=== PATIENT | female | born 1985 | race Caucasian/White ===

== ENCOUNTER → 2016-08-29 | Outpatient (CLI) | payer OTHER ==
--- NOTE | 2016-08-29 14:36 | US ---
Ultrasound Obstetric First Trimester History: History of positive . LMP June 01, 2016. Positive hCG. Technique: Transabdominal and transvaginal imaging was obtained of the pelvis. Findings: Uterus measures 9.2 x 4.6 cm. No evidence for myometrial mass. Endometrial stripe measures 13 mm. No evidence for an intrauterine regnancy. No significant free fluid. Right ovary measures 3.1 x 1.6 x 1.9 cm. The left ovary measures 3.5 x 2.2 x 2.2 cm. Both ovaries demonstrate blood flow. Ther e is a paraovarian cyst with a simple appearance at the right adnexal region measuring 1.3 cm and ano ther measuring 0.7 cm. There is a thick walled cystic lesion or gestational sac seen in the left para ovarian location measuring 3.3 x 2.1 x 2.2 cm. Impression: No evidence for an intrauterine . Thick walled cystic lesion or gestational sac in the left paraovarian location suspicious for an ectopic , particularly, with the lack of an intrauterine and positive hCG. This was discussed with Dr. Jenn Fields's miner assistant on August 29, 2016 at 1425 hours.
== END ==
LOC: FIMAGING 13:02
PROVIDERS: ATTEND Obstetrics & Gynecology
DX: Z32.01 Encounter for pregnancy test, result positive (principal)

== ENCOUNTER 2016-09-14 07:37 | Observation (INO) | payer OTHER ==
[2016-09-14 08:10] LABS: COLOR YELLOW; LEUKOCYTE ESTERASE,URINE NEGATIVE (NEGATIVE); NITRITE,URINE NEGATIVE (NEGATIVE)
[2016-09-14 08:24] LABS: % IMMATURE GRANULYOCYTES 0.3 % (0.0-1.1); ABSOLUTE IMMATURE GRANULOCYTES 0.02 10^3/uL (0.00-0.10); ADD DIFF? NO; ADD MORPH? NO; ADD SCAN? NO; ATYPICAL LYMPHOCYTE FLAG 10 (0-99); FRAGMENT RBC FLAG 0 (0-99); HEMATOCRIT 34.8 % (38.0-47.0); HEMOGLOBIN 11.8 g/dL (12.6-16.3); LEFT SHIFT FLG 0 (0-99); LIPEMIA HEMOLYSIS FLAG 90 (0-99); MEAN CELL HEMOGLOBIN 29.4 pg (27.9-34.1); MEAN CELL HEMOGLOBIN CONCENTR. 33.9 g/dL (32.4-36.7); MEAN CELL VOLUME 86.6 fL (81.5-99.8); MEAN PLATELET VOLUME 8.5 fL (8.7-11.7); PLATELET CLUMPS FLAG 10 (0-99); PLATELET COUNT 226 10^3/uL (150-400); RED BLOOD CELL COUNT 4.02 10^6/uL (4.18-5.33)
--- NOTE | 2016-09-14 08:48 | EDPHY ---
H & P Stated Complaint: Suprapubic abd pain since last ron;recent tx ectopic;pain radiates R should Time Seen by Provider: 09/14/16 07:58 HPI/ROS: CHIEF COMPLAINT: Abdominal cramping and dizziness in the setting of ectopic HISTORY OF PRESENT ILLNESS: This is a 31-year-old female withHistory of DVT /PE and a known left-sided ectopic . She is being followed by Dr. Fields. She received methotrexate two weeks ago. She has been having regular beta HCG testing with a decline in these values. Initially she had bleeding and cramping, both of which resolved a couple of days ago. However, last night she had a return of her lower abdominal cramping and felt dizzy. She spoke with the on-call nurse and was advised to rest, use a heating pad, and take [id number]-rplzcyt pain medication. She took Tylenol. This morning when she awoke she had continued abdominal pain and now notes left shoulder pain. She has intermittent dizziness. She is not having vaginal bleeding. She denies fever, back or flank pain, vomiting, or diarrhea. She does have some pain with urination, denies frequency or urgency. She is not having chest pain or shortness of breath. No calf pain or swelling. REVIEW OF SYSTEMS: A ten point review of systems was performed and is negative with the exception of the items mentioned in the HPI. Source: Patient Exam Limitations: No limitations - Personal History LMP (Females 10-55): Over 28 Days Ago Current Tetanus Diphtheria and Acellular Pertussis (TDAP): Yes - Medical/Surgical History Other PMH: 1. DVT/ PE at age 22. 2. Ectopic - Social History Smoking Status: Former smoker Drug Use: None Additional Social History: She is . She owns a [employer]. - Physical Exam Exam: General Appearance: Alert. Vital signs reviewed and normal. Eyes: Pupils equal and round, no conjunctival injection, no discharge. Anicteric. ENT, Mouth: Mucous membranes are moist, no oropharyngeal erythema or edema. Neck: No lymphadenopathy. Respiratory: Lungs are clear to auscultation; no wheezes, rales, or rhonchi. Cardiovascular: Regular rate and rhythm; no murmur, rub, or gallop. Gastrointestinal: Abdomen is soft diffusely tender, somewhat worse in the left lower quadrant, no guarding,no masses or organomegaly, bowel sounds normal. Skin: Warm and dry, no rashes on exposed skin, normal color. Back: No CVAT. Extremities: No lower extremity edema, no calf tenderness or swelling. Neurological: Alert and oriented. Moving all four extremities easily and equally. Psychiatric: Normal affect. Constitutional: Initial Vital Signs Temperature (C) 36.9 C 09/14/16 07:38 Heart Rate 90 09/14/16 07:38 Respiratory Rate 18 09/14/16 07:38 Blood Pressure 116/76 09/14/16 07:38 O2 Sat (%) 95 09/14/16 07:38 O2 Delivery Mode Room Air Allergies/Adverse Reactions: hydrocodone Allergy (Verified 09/14/16 12:19) Vomiting Home Medications: Medication Instructions Recorded Albuterol [Proventil Inhaler HFA 2 puffs IH Q4H PRN 09/14/16 (*)] Cetirizine [ZyrTEC 10 mg (*)] 10 mg PO DAILY 09/14/16 Fluticasone/Salmeter 250/50Mcg 1 puffs IH BID 09/14/16 [Advair 250/50 (*)] METHYLPHENIDATE HCL [Concerta 54 54 mg PO DAILY 09/14/16 mg] Medical Decision Making - Diagnostics Imaging: Pelvic ultrasound was obtained and shows a soft tissue mass in the region of the left broad ligament/adnexa with free fluid in the pelvis and Morison's pouch. This was reported to me by Dr. Martinez. ED Course/Re-evaluation: 31-year-old with a known left ectopic who has developed new cramping and intermittent dizziness. CBC, chemistries, and beta HCG will be checked. She has complained of some dysuria and a urinalysis will also be obtained. Pelvic ultrasound to assess for bleeding has been ordered. She is currently hemodynamically stable. I have spoken with the room server intervention manager for Dr. Fields at [facility]. Patient underwent serial abdominal exams while in the department. She continued with lower abdominal tenderness, worse on the left than on the right. She did not exhibit peritoneal signs. I have reviewed her laboratory values including CBC, chemistries, and beta HCG. Her beta HCG continues to decline. HEmoglobin and hematocrit are 11.8 and 34.8 this morning. Pelvic ultrasound reveals free fluid in the pelvis and Morison's pouch, likely hemoperitoneum given her history and physical exam. I have spoken with the certified nurse room server on duty for the [facility] and she is evaluated the patient in the emergency department. Dr. Parnell has also evaluated the patient. This patient would like to avoid surgery if at all possible. She is being admitted to the hospital for observation and serial hematocrits. Today's presentation is consistent with bleeding secondary to left ectopic . I do not suspect VTE today. However, she is at risk for DVT or PE given her history. Differential Diagnosis: I considered a differential diagnosis that includes but is not limited to ectopic , ruptured ectopic with hemoperitoneum, ovarian cyst , ruptured ovarian cyst, ovarian torsion, and pelvic infection. - Data Points Laboratory Results: Laboratory Results 09/14/16 08:00 09/14/16 08:00 Medications Given: Discontinued Medications Fentanyl (Sublimaze) 75 mcg IVP EDNOW ONE Stop: 09/14/16 10:20 Last Admin: 09/14/16 10:32 Dose: 75 mcg Hydromorphone HCl (Dilaudid) 0.5 mg IVP EDNOW ONE Stop: 09/14/16 11:57 Last Admin: 09/14/16 12:02 Dose: 0.5 mg Departure - Departure Disposition: [facility] Inpatient Acute Clinical Impression: Ectopic , tubal Qualifiers: Intrauterine status: without intrauterine Qualified Code(s) : O00.10 - Tubal without intrauterine Condition: Good
[2016-09-14 08:54] LABS: ANION GAP 8 mEq/L (8-16); CALCIUM 8.8 mg/dL (8.5-10.4); CARBON DIOXIDE 24 mEq/l (22-31); CHLORIDE 107 mEq/L (97-110); CREATININE 0.6 mg/dL (0.6-1.0); GLOMERULAR FILTRATION RATE > 60; GLUCOSE 97 mg/dL (70-100); POTASSIUM 3.8 mEq/L (3.5-5.2); SODIUM 139 mEq/L (134-144)
[2016-09-14] MEDS ORDERED: fentaNYL 100 MCG/2 ML INJ IVP ONE (10:19)
--- NOTE | 2016-09-14 10:38 | PDCONSULT ---
Oral And Maxillofacial Surgery Resident Note: 31 y.o. female presents with concerns of worsening LLQ and upper shoulder pain. Patient's history significant for ectopic that was diagnosed and treated with two doses of methotrexate on 08/29/16. Patient had been pain free until last night. Labs indicate continued decrease in QHCG and stable CBC and VS. Pelvic US reveals moderate amount of free fluid in pelvis and persistant left ectopic . Consulted with Dr. Parnell and will be in to evaluate patient further.
[2016-09-14] MEDS ORDERED: HYDROmorphONE/DILAUDID 1 MG/ML SYR IVP ONE (11:56)
[2016-09-14] MEDS ORDERED: ONDANSETRON 4 MG/2 ML VIAL IVP PRN (11:59)
[2016-09-14] MEDS ORDERED: ONDANSETRON DISINTEGRATING 4 MG TAB PO PRN (11:59)
[2016-09-14] MEDS ORDERED: D5W 1/2 NS 1,000 ML IV SCH (12:00)
[2016-09-14] MEDS ORDERED: NALOXONE HCL 0.4 MG/ML INJ IVP PRN (12:03)
[2016-09-14] MEDS ORDERED: HYDROmorphONE/DILAUDID 6 MG/30 ML PCA IV PRN (12:03)
--- NOTE | 2016-09-14 12:44 | GHP ---
[f rep st] PREOP HISTORY AND PHYSICAL DATE OF ADMISSION: 09/14/2016 CHIEF COMPLAINT: Abdominal pain and ectopic . HISTORY OF PRESENT ILLNESS: The patient is a 31-year-old female who has a known ectopic . She was treated with methotrexate 2 weeks ago by my partner, Dr. Fields. Her ectopic at that point was measuring 3.5 cm in size. Her HCG was 6805. Her initial hematocrit was 40. She then received methotrexate and her HCGs were falling appropriately; on day #3 it was 4127. On day 7, it was 2829. Of note, on day 7 after the methotrexate her hematocrit at that point was 37%, and on day 14, her HCG had dropped to 788. The patient then began to develop abdominal pain. Yesterday, she had experienced significant sharp right-sided abdominal pain. She had no vaginal bleeding. No nausea or vomiting. She did state that she was dizzy and felt like she was going to pass out one time while going to the bathroom. She took Tylenol for pain management and rested. She did not feel any better this morning; however, her pain had not felt any worse and presented to the ER for evaluation. Upon admission to the ER at 7:30 this morning, she had normal vital signs of 116 /76 blood pressure, heart rate was 90, O2 sats were 95%, temperature was 36.9. Her initial hematocrit was 34% on admission. This morning she had a normal white count of 5.8. Her platelets were 226. She had normal creatinine function and chemistries, and her HCG today has dropped down to 356. The patient underwent a pelvic ultrasound which showed moderate free fluid in the posterior cul-de-sac and right upper quadrant, Morison pouch. I have reviewed these images myself. The patient has a presumed ectopic on the left adnexa that was measuring 5.8 x 2.7 x 3.3; it was previously 3.4 x 2.3 x 2.1. She has a normal right ovary that is 3.1 x 2.8 x 1.51 cm in size with a 1.2 cm ovarian cyst. Otherwise, her uterus was normal in appearance. The patient's repeat vital signs at 11 a.m. were blood pressure 99/53, heart rate 73, respiratory rate 16, O2 saturation 94%. The patient had received pain medication. In the ER, she received 75 mcg of fentanyl. The patient chose methotrexate for treatment as she wanted to avoid possible removal of her fallopian tubes. She wanted tubal preservation. 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 PAST GYNECOLOGIC HISTORY: Noncontributory. She has had a history of IUD use. PAST OBSTETRICAL HISTORY: This is her first . PAST SURGICAL HISTORY: None. REVIEW OF SYSTEMS: Positive for abdominal pain and some nausea. Negative for vomiting, fevers, chills, dyspnea, vaginal bleeding. PHYSICAL EXAMINATION: VITAL SIGNS: On my exam, her blood pressure is 99/53, heart rate 73, respiratory rate 16, O2 saturation is 94%. GENERAL: She is uncomfortable in appearance. ABDOMEN: Soft. There is no rebound. There is no guarding. There is no distention. No significant tenderness with palpation. LABORATORY DATA: As stated, significant for HCG of 356, hematocrit of 34%, white blood cell count of 5.81, platelets 226, and a negative urinalysis. ASSESSMENT/PLAN: This is a 31-year-old, G1, P0, female with known left ectopic chose to have methotrexate treatment 16 days ago for tubal preservation who now has evidence of moderate free fluid, likely hemoperitoneum , in the abdomen with an essentially stable hematocrit from 1 week ago and significant history of DVTs and PEs. I discussed with the patient the findings of her exam, her laboratory evaluation, and her ultrasound. I explained to her that she does have hemoperitoneum in her pelvis and abdomen which has likely occurred as the ectopic probably extruded from the fallopian last evening which caused her increased pain and bleeding in the abdomen. I did discuss with the patient at this point she is hemodynamically stable and I know that she had chosen methotrexate initially to preserve her fallopian tube if possible. I discussed with the patient the option of proceeding to surgery right now and remove the fallopian tube and clean out any of the hemoperitoneum with the obvious attendant risks of surgery particularly in the setting of the patient having a history of DVTs and PEs. It does significantly increase the risk of her undergoing surgery. I also offered to the patient inpatient observation admission for serial hematocrits and pain management. I discussed that if her hematocrit was decreasing significantly then I would recommend surgical treatment. However, as her hematocrit currently is only 34% and it was 37% last week, I do not think she has had a significant amount of bleeding, particularly as her pain started yesterday in the afternoon and her hematocrit is from this morning. I discussed with the patient also if her pain was worsening significantly we would also move toward surgery. The patient would like to proceed with inpatient observation and serial hematocrits, and understands that if her condition worsens that we would be proceeding to surgery. /[id number]/MODL MTDD
[2016-09-14 14:53] LABS: % IMMATURE GRANULYOCYTES 0.2 % (0.0-1.1); ABSOLUTE IMMATURE GRANULOCYTES 0.01 10^3/uL (0.00-0.10); ADD DIFF? NO; ADD MORPH? NO; ADD SCAN? NO; ATYPICAL LYMPHOCYTE FLAG 10 (0-99); FRAGMENT RBC FLAG 0 (0-99); HEMATOCRIT 32.4 % (38.0-47.0); HEMOGLOBIN 11.2 g/dL (12.6-16.3); LEFT SHIFT FLG 0 (0-99); LIPEMIA HEMOLYSIS FLAG 90 (0-99); MEAN CELL HEMOGLOBIN 29.8 pg (27.9-34.1); MEAN CELL HEMOGLOBIN CONCENTR. 34.6 g/dL (32.4-36.7); MEAN CELL VOLUME 86.2 fL (81.5-99.8); MEAN PLATELET VOLUME 8.3 fL (8.7-11.7); PLATELET CLUMPS FLAG 0 (0-99); PLATELET COUNT 200 10^3/uL (150-400); RED BLOOD CELL COUNT 3.76 10^6/uL (4.18-5.33); RED CELL DISTRIBUTION WIDTH 13.1 % (11.5-15.2)
[2016-09-14 20:06] LABS: % IMMATURE GRANULYOCYTES 0.2 % (0.0-1.1); ABSOLUTE IMMATURE GRANULOCYTES 0.01 10^3/uL (0.00-0.10); ADD DIFF? NO; ADD MORPH? NO; ADD SCAN? NO; ATYPICAL LYMPHOCYTE FLAG 10 (0-99); FRAGMENT RBC FLAG 0 (0-99); HEMATOCRIT 31.3 % (38.0-47.0); HEMOGLOBIN 10.7 g/dL (12.6-16.3); LEFT SHIFT FLG 0 (0-99); LIPEMIA HEMOLYSIS FLAG 90 (0-99); MEAN CELL HEMOGLOBIN 29.8 pg (27.9-34.1); MEAN CELL HEMOGLOBIN CONCENTR. 34.2 g/dL (32.4-36.7); MEAN CELL VOLUME 87.2 fL (81.5-99.8); MEAN PLATELET VOLUME 8.4 fL (8.7-11.7); PLATELET CLUMPS FLAG 0 (0-99); PLATELET COUNT 192 10^3/uL (150-400); RED BLOOD CELL COUNT 3.59 10^6/uL (4.18-5.33); RED CELL DISTRIBUTION WIDTH 12.9 % (11.5-15.2)
[2016-09-14] MEDS ORDERED: ACETAMINOPHEN 325 MG TAB PO PRN (20:24)
[2016-09-15 06:19] LABS: % IMMATURE GRANULYOCYTES 0.3 % (0.0-1.1); ABSOLUTE IMMATURE GRANULOCYTES 0.01 10^3/uL (0.00-0.10); ADD DIFF? NO; ADD MORPH? NO; ADD SCAN? NO; ATYPICAL LYMPHOCYTE FLAG 0 (0-99); FRAGMENT RBC FLAG 0 (0-99); HEMATOCRIT 30.1 % (38.0-47.0); HEMOGLOBIN 10.1 g/dL (12.6-16.3); LEFT SHIFT FLG 0 (0-99); LIPEMIA HEMOLYSIS FLAG 80 (0-99); MEAN CELL HEMOGLOBIN 29.2 pg (27.9-34.1); MEAN CELL HEMOGLOBIN CONCENTR. 33.6 g/dL (32.4-36.7); MEAN PLATELET VOLUME 8.3 fL (8.7-11.7); PLATELET CLUMPS FLAG 0 (0-99); PLATELET COUNT 182 10^3/uL (150-400); RED BLOOD CELL COUNT 3.46 10^6/uL (4.18-5.33); RED CELL DISTRIBUTION WIDTH 13.1 % (11.5-15.2)
[2016-09-15] MEDS ORDERED: HYDROmorphONE/DILAUDID 2 MG TAB PO PRN (09:47)
--- NOTE | 2016-09-15 09:55 | SOAPPROG ---
SOAP Progress Note Assessment/Plan: Assessment: 31 yo female s/p methotrexate for ectopic treatment over two weeks ago, with abdominal pain and likely hemoperitoneum, stable Plan: 09/15/16 09:51 Hemodynamically stable, HCT downtrended for 34% to 30% over 24 hours, but patient is also up 1.5 L in fluid volume, so I think this is likely dilutional. The patient has a very benign abdominal exam and I do not feel surgery is warranted at this time, especially given her surgical risk of DVT due to her prior history of DVT. Recommend transition to oral pain meds this morning, recheck cbc this afternoon, if still stable, will d/c home with pain meds and antinausea medication. Subjective: 31 yo female s/p methotrexate for ectopic treatment over two weeks ago, with abdominal pain and likely hemoperitoneum, stable-pain better controlled with dilaudid, has had nausea and vomiting. Headache resolved, no vaginal bleeding. Able to tolerate clear liquids. Objective: Vital Signs Temp Pulse Resp BP Pulse Ox 36.4 C 77 16 98/61 L 92 09/15/16 05:50 09/15/16 07:00 09/15/16 05:50 09/15/16 05:50 09/15/16 07:00 Laboratory Results 09/15/16 05:55 09/14/16 09/15/16 09/16/16 05:59 05:59 05:59 Intake Total 3600 Output Total 1450 Balance 2150 Physical Exam - Physical Exam General Appearance: no apparent distress Respiratory: lungs clear, normal breath sounds Cardiac/Chest: regular rate, rhythm Abdomen: normal bowel sounds, non-tender Skin: warm/dry Extremities: non-tender Neuro/Psych: oriented x 3 ICD10 Worksheet Patient Problems: Problems Problem Status Onset Ectopic , tubal Acute
[2016-09-15 10:33] LABS: % IMMATURE GRANULYOCYTES 0.4 % (0.0-1.1); ABSOLUTE IMMATURE GRANULOCYTES 0.02 10^3/uL (0.00-0.10); ADD DIFF? NO; ADD MORPH? NO; ADD SCAN? NO; ATYPICAL LYMPHOCYTE FLAG 30 (0-99); FRAGMENT RBC FLAG 0 (0-99); HEMATOCRIT 32.5 % (38.0-47.0); HEMOGLOBIN 11.1 g/dL (12.6-16.3); LEFT SHIFT FLG 0 (0-99); LIPEMIA HEMOLYSIS FLAG 90 (0-99); MEAN CELL HEMOGLOBIN 29.6 pg (27.9-34.1); MEAN CELL HEMOGLOBIN CONCENTR. 34.2 g/dL (32.4-36.7); MEAN CELL VOLUME 86.7 fL (81.5-99.8); MEAN PLATELET VOLUME 8.2 fL (8.7-11.7); PLATELET CLUMPS FLAG 0 (0-99); PLATELET COUNT 197 10^3/uL (150-400); RED BLOOD CELL COUNT 3.75 10^6/uL (4.18-5.33); RED CELL DISTRIBUTION WIDTH 12.9 % (11.5-15.2)
--- NOTE | 2016-09-15 11:17 | GDS ---
[f rep st] DISCHARGE SUMMARY DISCHARGE DIAGNOSES: 1. Left ectopic with likely tubal extrusion causing hemoperitoneum, hemodynamically stabl e. 2. Seasonal allergies. HISTORY OF PRESENT ILLNESS: The patient is a 31-year-old female, who was diagnosed with a left ecto pic on 08/29/2016 and underwent methotrexate injection. Her beta hCGs had been falling ap propriately every week and she was doing well until on Friday of this week, on 09/13/2016, she devel oped abdominal pain that did not improve. She presented to the ER on the morning of 09/14 with comp laints of abdominal pain. She was hemodynamically stable. Ultrasound revealed moderate free fluid in her peritoneum, consistent with hemoperitoneum and a left ectopic . Of note, the patien t's beta hCG had dropped from 6800 to 352 on the check yesterday. The patient's hematocrit had drop ped from 37% two weeks ago to 34% yesterday morning. I discussed with the patient that she did have hemoperitoneum and that it was likely caused from the tubal extrusion of the ectopic . I offered the patient inpatient management with pain medication control and monitoring her hematocrit or surgery. I discussed with the patient the risk of surgery is that she would likely lose her tube , and as she has a significant surgical risk given her history of bilateral DVTs and PEs in the past that she would be at increased risk for blood clots, and if we chose the surgical route the patient wanted to be admitted for pain management. She also wanted to be able to save the fallopian tube i f possible, and we follow serial hematocrits. In the hospital, her pain was managed with IV Dilaudi d. She did have some nausea and vomiting from the medication. Her hematocrit dropped from 34% to 3 0%; however, she was 2.1 L in fluid balance, so I think that this hematocrit drop is likely secondar y to fluid overload. She remained hemodynamically stable her entire stay. DISCHARGE EXAM: VITAL SIGNS: Her blood pressure is 98/61, pulse is 74, heart rate is 16, respirato ry rate is 93%, and temperature is 36.4. GENERAL: She was able to ambulate. She was not feeling a s short of breath or dizzy as she was prior to admission. She was able to void on her own. She was tolerating clear diet and at time of discharge was able to tolerate oral pain medication. HEART: Regular rate and rhythm. LUNGS: Clear. ABDOMEN: Soft, nontender. Bowel sounds are present. DISPOSITION: I did feel from her exam that it is extremely benign exam. I did not feel that she galarza d a surgical abdomen, and I discussed with the patient that should she develop any worsening pain or nausea, vomiting or heavy vaginal bleeding, she would need to return and we would likely need to pr oceed to surgery if she was having worsening pain. The patient understands these precautions and ag vita with this plan. Discharge pain meds include Zofran 4 mg ODT and Dilaudid 4 mg p.o. q.4 hours. The patient is to follow up later this week with her primary PASTOR, Dr. Fields, and she will get her hematocrit checked again this week as well. /[id number]/MODL
[2016-09-15 12:25] VITALS: BP 97/66; PULSE 79; RESP 18; TEMP 98.2; O2SAT 95
== END 2016-09-15 12:20 | disposition home or self-care (01) ==
LOC: INTOOBSV 11:46 → FOB 13:39
PROVIDERS: ADMIT Obstetrics & Gynecology; ATTEND Obstetrics & Gynecology
DX: O00.10 Tubal pregnancy without intrauterine pregnancy (principal); K66.1 Hemoperitoneum; Z86.711 Personal history of pulmonary embolism; Z86.718 Personal history of other venous thrombosis and embolism; Z87.891 Personal history of nicotine dependence
CPT/HCPCS: 76856; G0378; 96374; J1170; J2405; J3010

== ENCOUNTER → 2016-10-21 | Outpatient (CLI) | payer OTHER | LOC: FIMAGING 07:37 | PROVIDERS: ATTEND Obstetrics & Gynecology | DX: O00.10 Tubal pregnancy without intrauterine pregnancy (principal) ==

== ENCOUNTER → 2016-12-09 | Outpatient (CLI) | payer OTHER | LOC: FIMAGING 09:25 | PROVIDERS: ATTEND Obstetrics & Gynecology | DX: Z09 Encounter for follow-up examination after completed treatment for conditions other than malignant neoplasm (principal) ==

== ENCOUNTER → 2017-05-14 | Outpatient (CLI) | payer OTHER | LOC: FIMAGING 12:53 | PROVIDERS: ATTEND Obstetrics & Gynecology | DX: N83.8 Other noninflammatory disorders of ovary, fallopian tube and broad ligament (principal); D25.2 Subserosal leiomyoma of uterus ==

== ENCOUNTER 2018-01-08 17:40 | Emergency (ER) | payer OTHER ==
[2018-01-08 17:50] VITALS: BP 115/84
--- NOTE | 2018-01-08 19:38 | EDPHY ---
H & P Time Seen by Provider: 01/08/18 18:46 HPI/ROS: Chief complaint. Calf pain and swelling HPI. Patient is a 32-year-old female with history of DVT. She has had pain to the left calf and swelling since travel in mid November. She has no longer on anticoagulation. No symptoms above the knee. No chest discomfort or trouble breathing. ROS Constitutional. no fever/chills, no weakness Eyes. no problems with vision ENT. no sore throat, no nasal drainage Cardiovascular. no chest pain Respiratory. no shortness of breath, no cough Abdominal. no abdominal pain, no nausea/vomiting, no diarrhea . no problems urinating MS. Left calf pain and swelling Skin. no rash Lymph. no swollen glands Neuro. no headache, no dizziness, no difficulty walking or with speech Past Medical/Surgical History: Past medical history ectopic in and DVT Social History: Single, nonsmoker, no alcohol Smoking Status: Former smoker Physical Exam: General Appearance: Alert well-developed female mild distress vital signs are stable Eyes: Pupils equal and round no pallor or injection. ENT, Mouth: Mucous membranes are moist. Respiratory: There are no retractions, lungs are clear to auscultation. Cardiovascular: Regular rate and rhythm. Gastrointestinal: Abdomen is soft and nontender, no masses, bowel sounds normal. Neurological: Awake and alert, sensory and motor exams grossly normal. Skin: Warm and dry, no rashes. Musculoskeletal: Neck is supple nontender. Extremities left calf is somewhat more prominent and maybe swollen than the right. Some mild tenderness. No symptoms above the knee Psychiatric: Patient is oriented X 3, there is no agitation. Constitutional: Initial Vital Signs Temperature (C) 36.4 C 01/08/18 17:46 Heart Rate 93 01/08/18 17:46 Respiratory Rate 18 01/08/18 17:46 Blood Pressure 115/84 H 01/08/18 17:46 O2 Sat (%) 97 01/08/18 17:46 O2 Delivery Mode Room Air Allergies/Adverse Reactions: hydrocodone Allergy (Verified 01/08/18 17:45) Vomiting Home Medications: Medication Instructions Recorded Albuterol [Proventil Inhaler HFA 2 puffs IH Q4H PRN 09/14/16 (*)] Cetirizine [ZyrTEC 10 mg (*)] 10 mg PO DAILY 09/14/16 METHYLPHENIDATE HCL [Concerta 54 54 mg PO DAILY 09/14/16 mg] Medical Decision Making - Diagnostics Imaging Results: Imaging Impressions Extremity Venous Study 01/08/18 17:51 Impression: There is no sonographic evidence of deep or superficial vein thrombosis in the left lower extremity. Findings were discussed with IRENE HENLEY MD at 18:44, on 01/08/2018. Ultrasound of the left lower extremity reviewed by me and discussed with Dr. Capone. No evidence of DVT ED Course/Re-evaluation: Re-evaluation at 7:45 p.m.. Patient is stable. She and I discussed imaging study results, treatment plan including criteria for return importance of follow -up and further evaluation. She expresses understanding and agreement Differential Diagnosis: I considered DVT, calf strain Departure - Departure Disposition: Home, Routine, Self-Care Clinical Impression: Pain of left calf Condition: Good Instructions: Leg Pain (ED) Additional Instructions: Activity as tolerated. Return for worsening symptoms. Follow up with your primary care provider for further evaluation of calf swelling. Referrals: Suma Alvarez MD [Primary Care Provider] - As per Instructions
== END 2018-01-08 19:54 | disposition home or self-care (01) ==
DX: M79.605 Pain in left leg (principal); Z87.891 Personal history of nicotine dependence